=== PATIENT | female | born 1945 | race Caucasian/White ===

== ENCOUNTER 2017-07-23 12:11 | Observation (INO) | payer MEDICARE, BC ==
[~2017-07-23] VITALS: Ht 162.6 cm; Wt 85.3 kg
[2017-07-23] MEDS ORDERED: TIZA2CAP PO (12:39)
[2017-07-23] MEDS ORDERED: HTN MED PO (12:39)
[2017-07-23] MEDS ORDERED: TRAZ50TA18 PO (13:04)
[2017-07-23] MEDS ORDERED: GABA300C10 PO (13:04)
[2017-07-23] MEDS ORDERED: ESTR5VIA IM (13:04)
[2017-07-23] MEDS ORDERED: LEVO112T4 PO (13:04)
[2017-07-23] MEDS ORDERED: GLYB5TAB3 PO (13:04)
[2017-07-23] MEDS ORDERED: B-12 INJECTION IM (13:04)
[2017-07-23] MEDS ORDERED: SIMV10TA3 PO (13:04)
[2017-07-23 13:13] LABS: BASOPHILS # (AUTO) 0.05 x10^3/uL (0-0.1); BASOPHILS % (AUTO) 1 % (0-1); EOSINOPHILS # (AUTO) 0.49 x10^3/uL (0-0.4); EOSINOPHILS % (AUTO) 5 % (1-7); LYMPHOCYTES # (AUTO) 1.78 x10^3/uL (1-3.4); LYMPHOCYTES % (AUTO) 20 % (22-44); MD NO; MEAN CORPUSCULAR HEMOGLOBIN 31.9 pg (27.0-34.8); MEAN CORPUSCULAR HGB CONC 32.9 g/dL (32.4-35.8); MEAN PLATELET VOLUME 8.4 fL (7.4-10.4); MONOCYTES % (AUTO) 7 % (2-9); NEUTROPHILS # (AUTO) 6.15 x10^3/uL (1.8-6.8); NEUTROPHILS % (AUTO) 68 % (42-75); PLATELET COUNT 327 x10^3/uL (130-400); RED BLOOD COUNT 3.73 x10^6/uL (3.82-5.3); RED CELL DISTRIBUTION WIDTH 15.6 % (9.6-15.2)
[2017-07-23] MEDS ORDERED: BACITRACIN ZINC OINT 500U/GM, 0.9 GM ONE (13:21)
[2017-07-23 13:22] LABS: INTERNATIONAL NORMALIZED RATIO 1.03 (0.93-1.1); PROTHROMBIN TIME 10.6 Seconds (9.6-11.5)
[2017-07-23 13:24] LABS: ALANINE AMINOTRANSFERASE 18 U/L (12-78); ALBUMIN 3.6 g/dL (3.4-5.0); ANION GAP 8 mmol/L (5-15); CALCIUM 9.1 mg/dL (8.5-10.1); CHLORIDE 98 mmol/L (98-107); CREATININE 1.85 mg/dL (0.55-1.02)
[2017-07-23 13:27] LABS: ALKALINE PHOSPHATASE 86 U/L (45-117); BILIRUBIN,TOTAL 0.2 mg/dL (0.2-1.0); TOTAL PROTEIN 7.4 g/dL (6.4-8.2)
[2017-07-23] MEDS ORDERED: SODIUM CHLORIDE 0.9%, 500ML IVBOLUS ONE (13:30)
[2017-07-23 13:41] LABS: MICROSCOPIC NOT IND
[2017-07-23 13:45] LABS: CULTURE INDICATED? NO
[2017-07-23] MEDS ORDERED: ACETAMINOPHEN 325 MG TABLET PO ONE (14:00)
[2017-07-23] MEDS ORDERED: ACETAMINOPHEN 325 MG TABLET ONE (14:38)
[2017-07-23] MEDS ORDERED: ONDANSETRON 2MG/ML, 2ML IVPush PRN (15:30)
[2017-07-23] MEDS ORDERED: POLYETHYLENE GLYCOL 17 GM PACKET PO PRN (15:30)
[2017-07-23] MEDS ORDERED: hydrALAzine 20 MG/ML, 1ML IVPush PRN (15:30)
[2017-07-23] MEDS ORDERED: BISACODYL 10 MG SUPP PR PRN (15:30)
[2017-07-23] MEDS ORDERED: ONDANSETRON ODT 4 MG PO PRN (15:30)
[2017-07-23] MEDS ORDERED: TIZANIDINE 4MG TABLET PO PRN (15:30)
[2017-07-23] MEDS ORDERED: OXYcodone/APAP 5/325MG TABLET PO PRN (15:30)
[2017-07-23 15:53] LABS: FREE T4 (FREE THYROXINE) 1.22 ng/dL (0.76-1.46); TROPONIN I < 0.015 ng/mL (0.000-0.045)
[2017-07-23] MEDS: INSULIN ASPART 100 UNITS/ML, PEN SQ-INSULIN SCH ×2 (16:00→21:00)
[2017-07-23 16:09] VITALS: BP 101/59
[2017-07-23 16:13] LABS: HEMOGLOBIN A1C 6.5 % (4.2-6.3)
[2017-07-23] MEDS: SODIUM CHLORIDE 0.9% 1,000 ML IV SCH (16:30)
[2017-07-23] MEDS ORDERED: INSULIN ASPART 100 UNITS/ML, PEN SQ-INSULIN SCH (17:30)
[2017-07-23] MEDS: HEPARIN 5,000 UNITS/ML, 1ML SQ SCH (18:29)
[2017-07-23] MEDS: GABAPENTIN 100 MG CAPSULE PO SCH ×2 (18:29→20:11)
[2017-07-23 20:00] VITALS: BP 159/88
[2017-07-23 20:01] VITALS: BP 129/71
[2017-07-23] MEDS: HYDROcodone/APAP 5/325 TABLET PO PRN (20:01)
[2017-07-23 20:02] VITALS: BP 122/59
[2017-07-23] MEDS ORDERED: SIMVASTATIN 10 MG TABLET PO SCH (21:00)
[2017-07-23] MEDS ORDERED: TRAZODONE 50MG TABLET PO SCH (21:00)
[2017-07-23] MEDS: GlyBURIDE 5 MG TABLET PO SCH (21:49)
[2017-07-23 22:04] LABS: TROPONIN I < 0.015 ng/mL (0.000-0.045)
[2017-07-23] MEDS: ZOLPIDEM 5MG TABLET PO PRN (23:23)
[2017-07-24] MEDS: HYDROcodone/APAP 5/325 TABLET PO PRN ×4 (00:41→14:50)
[2017-07-24] MEDS: SODIUM CHLORIDE 0.9% 1,000 ML IV SCH (00:41)
[2017-07-24] MEDS: ZOLPIDEM 5MG TABLET PO PRN (00:51)
[2017-07-24 02:00] VITALS: BP 146/81
[2017-07-24 02:01] VITALS: BP 132/66
[2017-07-24 02:02] VITALS: BP 118/73
[2017-07-24] MEDS: HEPARIN 5,000 UNITS/ML, 1ML SQ SCH ×2 (05:22→14:00)
[2017-07-24 05:54] LABS: BASOPHILS # (AUTO) 0.04 x10^3/uL (0-0.1); BASOPHILS % (AUTO) 0 % (0-1); EOSINOPHILS # (AUTO) 0.57 x10^3/uL (0-0.4); EOSINOPHILS % (AUTO) 6 % (1-7); LYMPHOCYTES # (AUTO) 3.03 x10^3/uL (1-3.4); LYMPHOCYTES % (AUTO) 34 % (22-44); MD NO; MEAN CORPUSCULAR HEMOGLOBIN 32.3 pg (27.0-34.8); MEAN PLATELET VOLUME 8.6 fL (7.4-10.4); MONOCYTES # (AUTO) 0.93 x10^3/uL (0.2-0.8); MONOCYTES % (AUTO) 11 % (2-9); NEUTROPHILS # (AUTO) 4.26 x10^3/uL (1.8-6.8); NEUTROPHILS % (AUTO) 48 % (42-75); PLATELET COUNT 345 x10^3/uL (130-400); RED CELL DISTRIBUTION WIDTH 15.5 % (9.6-15.2)
[2017-07-24] MEDS ORDERED: LEVOTHYROXINE 112 MCG TABLET PO SCH ×2 (06:00→09:00)
[2017-07-24 06:10] LABS: CHLORIDE 100 mmol/L (98-107)
[2017-07-24 06:29] LABS: ANION GAP 10 mmol/L (5-15); CHOLESTEROL, TOTAL 156 mg/dL (140-239); CREATININE 1.36 mg/dL (0.55-1.02); HDL CHOL % 20 % (28-40); HDL CHOLESTEROL (DIRECT) 31 mg/dL (40-60); LDL CHOLESTEROL,CALCULATED 61 mg/dL (54-169); TRIGLYCERIDES 319 mg/dL (50-200); VLDL CHOLESTEROL 64 mg/dL (0-25)
[2017-07-24] MEDS: INSULIN ASPART 100 UNITS/ML, PEN SQ-INSULIN SCH ×2 (07:00→11:00)
[2017-07-24 08:28] VITALS: BP_SYST 130; BP_SYST 147; BP_SYST 156; BP_DIAS 82; BP_DIAS 84
[2017-07-24] MEDS ORDERED: FAMOTIDINE 20 MG TABLET PO SCH (09:00)
[2017-07-24] MEDS: GlyBURIDE 5 MG TABLET PO SCH (09:26)
[2017-07-24] MEDS: GABAPENTIN 100 MG CAPSULE PO SCH (09:27)
[2017-07-24] MEDS ORDERED: POTASSIUM CHLORIDE 20 MEQ TAB.ER.PRT PO ONE ×2 (10:30→13:30)
[2017-07-24] MEDS ORDERED: TIZA2CAP PO (13:19)
[2017-07-24] MEDS ORDERED: MAGNESIUM SULFATE 1 GM/2 ML IVPush STA (13:25)
== END 2017-07-24 15:38 | disposition home or self-care (01) ==
LOC: ED 13:57 → EDIP 13:58 → INTOOBSV 13:58 → ED 14:25 → 4EST 16:13 → DCLOUNGE 07-24 15:28
PROVIDERS: ADMIT Internal Medicine; ATTEND Internal Medicine
DX: R55 Syncope and collapse (principal); I95.1 Orthostatic hypotension; R00.1 Bradycardia, unspecified; E78.5 Hyperlipidemia, unspecified; M54.2 Cervicalgia; M54.9 Dorsalgia, unspecified; G89.29 Other chronic pain; E11.22 Type 2 diabetes mellitus with diabetic chronic kidney disease; I12.9 Hypertensive chronic kidney disease with stage 1 through stage 4 chronic kidney disease, or unspecified chronic kidney disease; N18.9 Chronic kidney disease, unspecified; E03.9 Hypothyroidism, unspecified; S80.212A Abrasion, left knee, initial encounter; S00.03XA Contusion of scalp, initial encounter; X58.XXXA Exposure to other specified factors, initial encounter; Y93.89 Activity, other specified; Y92.89 Other specified places as the place of occurrence of the external cause; Y99.8 Other external cause status; Z96.611 Presence of right artificial shoulder joint; Z90.710 Acquired absence of both cervix and uterus
CPT/HCPCS: 36415; 70450; 71010; 72125; 72128; 72131; 80048; 80053; 80061; 81003; 82962; 83036; 83735; 84100; 84439; 84443; 84484; 85025; 85610; 85730; 93005; 93306; 96360; 96361; 96372; 97162; 97166; 99285; G0378; G8987; G8988; G8989; J1644; J7030; J7040